=== PATIENT | female | born 1945 | race African-American/Black ===

== ENCOUNTER 2025-03-02 10:02 | Outpatient (AMB) | payer MEDICARE, MEDICAID, SELFPAY ==
--- NOTE | 2025-03-02 10:28 | A.PHYSOV_ITS ---
Vital Signs 03/02/25 10:28 Height 5 ft 4 in Weight 175 lb BMI 30.0 Intake Visit Reasons: 3M FUV Intake Note: Patient is a 79 year old female in office today for her 3 month medication management visit. 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 Allergies amlodipine Allergy (Unknown, Verified 03/02/25 10:29) Unknown amoxicillin Allergy (Unknown, Verified 03/02/25 10:29) Unknown atenolol Allergy (Unknown, Verified 03/02/25 10:) Unknown atorvastatin (From Lipitor) Allergy (Unknown, Verified 03/02/25 10:29) Unknown celecoxib (From Celebrex) Allergy (Unknown, Verified 03/02/25 10:) Unknown diltiazem Allergy (Unknown, Verified 03/02/25 10:) Unknown erythromycin base Allergy (Unknown, Verified 03/02/25 10:) Unknown ibuprofen Allergy (Unknown, Verified 03/02/25 10:) Unknown levofloxacin (From Levaquin) Allergy (Unknown, Verified 03/02/25 10:) Unknown nitrofurantoin (From Macrobid) Allergy (Unknown, Verified 03/02/25 10:) Unknown propoxyphene (From Darvon) Allergy (Unknown, Verified 03/02/25 10:) Unknown tetracycline Allergy (Unknown, Verified 03/02/25:) Unknown HPI Comments Details: History of Present Illness The patient is an 79-year-old female presenting for a follow-up visit for chronic neck and lower back pain. She has a lumbosacral spine MRI that was consistent with severe central spinal canal stenosis at the L2-L3 level, which is above a prior fusion. She was evaluated by Dr. Li on January 08, 2024, and surgery was not recommended. The patient is prescribed oxycodone/acetaminophen 5/325 mg for pain and takes up to six pills a day. She reports that her pain is worsening and the medication's effectiveness varies, acknowledging that her body is getting used to it. She has a history of C7-T1 epidural injections. She reports increasing right shoulder and arm pain, which is exacerbated by overhead activities and the use of her walker. She received a right subacromial injection on December 02, 2024, but she does not recall if it helped. Her back pain radiates to her hips, which hurt when she walks or turns over at night. She finds relief from leaning forward and using moist heat. In terms of recent health, she is recovering from influenza which she had in January 2025. Socially, the patient lives alone, feels unsupported by her family, and is responsible for her own housekeeping. Pain Description - Location: The patient reports chronic neck and lower back pain, increasing right shoulder and arm pain, and bilateral hip pain. - Quality: The shoulder pain is described as feeling like being stabbed with a hot knife. - Radiation: The back pain radiates to her hips. - Exacerbating Factors: Pain is worsened by walking, overhead activities, and pressure on her shoulders from using a walker. - Relieving Factors: Leaning forward helps open up her back and provides relief. - Current Management: The patient takes oxycodone/acetaminophen 5/325 mg, up to 6 pills per day, with variable effectiveness. - Non-pharmacologic Management: She uses moist heat on her hips for pain relief. Results - Imaging: A lumbosacral spine MRI showed severe central spinal canal stenosis at the L2-L3 level, above a previous fusion. [facility] Medical History (Updated 03/02/25 @ 12:38 by Bart Cowart DO) Post laminectomy syndrome Lumbar radiculitis Neck pain Spinal stenosis, lumbar region with neurogenic claudication Chronic pain syndrome Social History (Updated 03/02/25 @ 10:30 by Karla Irving MA) Household Members Other:: Alcohol intake: current Alcohol intake frequency: does not drink Patient Tobacco Use Status: Former Tobacco user Current occupational status: retired Review of Systems Narrative Review of Systems - Constitutional: Reports recovering from a recent case of influenza. - Musculoskeletal: Reports chronic neck and lower back pain, increasing right shoulder and arm pain, and bilateral hip pain that is worse with walking and turning over at night. - Neurological: Reports pain that radiates from her back down to her hips. - Psychiatric: Reports feeling alone. Physical Exam Exam Exam: Physical Exam - General: The patient is well-appearing and well-dressed. No antalgia negate, forward flexed posture. Appropriately conversant oriented. Restricted abduction in both shoulders. Tenderness with palpation over lumbar paraspinal muscles. No pain with internal hip rotation. Patient demonstrated no upper motor neuron signs. Neurological examination generally nonfocal. Vital Signs: BMI result Body Mass Index 30.0 Assessment & Plan Assessment & Plan (1) Spinal stenosis, lumbar region with neurogenic claudication: Code(s): M48.062 - Spinal stenosis, lumbar region with neurogenic claudication Category: Medical (2) Chronic pain syndrome: Code(s): G89.4 - Chronic pain syndrome Category: Medical (3) Neck pain: Code(s): M54.2 - Cervicalgia Category: Medical (4) Lumbar radiculitis: Code(s): M54.16 - Radiculopathy, lumbar region Category: Medical (5) Post laminectomy syndrome: Code(s): M96.1 - Postlaminectomy syndrome, not elsewhere classified Category: Medical Plan Pain Management - Analgesia: The patient is prescribed oxycodone/acetaminophen 5/325 mg as needed for pain, taking up to 6 pills a day. - She reports her pain is increasing, and the medication's effectiveness is variable. - Activities of Daily Living: Using a walker for mobility exacerbates her shoulder pain. - She finds it difficult to manage her apartment and do her own laundry. - Adverse Effects: She reports that her body is getting used to the medication, indicating tolerance. - Aberrant Drug Related Behaviors: She once stopped her medication for a few days but states she will not do so again. - Affect: The patient feels she is virtually alone and unsupported by family. Plan Patient was informed and verbally consented to the use of an ambient scribe for clinic note documentation during this visit. 1. Chronic Pain Syndrome The patient's multifactorial chronic pain is primarily managed with oxycodone/acetaminophen 5/325 mg, which she takes up to 6 times daily. She reports increasing pain and has noticed developing tolerance to the medication. We previously discussed development of tolerance, however I would be very hesitant on increasing her medication and she is already up to 6 tablets a day. She will continue her current regimen and is encouraged to continue using moist heat for symptomatic relief. Follow-up is scheduled in three months. 2. Lumbar Spinal Stenosis The patient has severe central spinal stenosis at L2-L3 above a prior fusion, which is the source of her lower back and radiating hip pain. A surgical evaluation on January 08, 2024, did not recommend surgery. Management remains conservative, focusing on symptomatic relief through pain medication and postural adjustments such as leaning forward. She will follow up in three months. 3. Right Shoulder Pain The patient reports increasing right shoulder pain, exacerbated by using her walker. She received a right subacromial injection three months prior but does not recall if it provided relief. 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 Discussion Notes I reviewed the patient's ongoing chronic neck and back pain, acknowledging that her MRI shows severe spinal stenosis above a prior fusion, which causes her back and radiating hip pain. I explained that leaning forward helps relieve the pressure and pain by opening the spinal canal. Pathophysiology of her condition was discussed again. We discussed her pain medication, oxycodone/acetaminophen, and I acknowledged her report that the pain is worsening and her body is becoming accustomed to the medication. We also discussed the right shoulder injection from three months ago; she did not recall it providing relief and noted her shoulder pain is now worse from using her walker. I commended her on how well she takes care of herself despite her significant pain and scheduled a follow-up appointment in about three months. Patient Instructions - Continue taking your pain medication, oxycodone/acetaminophen, as prescribed. - You can use moist heat packs on your hips when they hurt to help with the pain. - Remember that leaning your body forward when you walk may give you some temporary relief from your back pain. - Please schedule a follow-up visit to see me again in about three months. Medications: Refilled oxycodone-acetaminophen 5-325 mg 1 tab PO Q4H PRN 168 tabs 0RF pain 28 days G89.4 - Chronic pain syndrome, M48.062 - Spinal stenosis, lumbar region with neurogenic claudication, M54.2 - Cervicalgia Coding Level of Care Code Est Pt Level 4 (37765) Add On Problem Visit Only Diagnoses Spinal stenosis, lumbar region with neurogenic claudication M48.062 Chronic pain syndrome G89.4 Neck pain M54.2 Lumbar radiculitis M54.16 Post laminectomy syndrome M96.1
== END 2025-03-02 10:42 | disposition home or self-care (01) ==
LOC: HO.HPHYS 10:02
PROVIDERS: PCP Student in an Organized Health Care Education/Training Program; Visit Provider Physical Medicine & Rehabilitation
DX: M48.062 Spinal stenosis, lumbar region with neurogenic claudication (principal); G89.4 Chronic pain syndrome; M54.2 Cervicalgia; M54.16 Radiculopathy, lumbar region; M96.1 Postlaminectomy syndrome, not elsewhere classified
CPT/HCPCS: 99214; G2211

== ENCOUNTER → 2025-03-02 10:02 | Outpatient (BNVA) | payer MEDICARE, MEDICAID, SELFPAY | PROVIDERS: PCP Student in an Organized Health Care Education/Training Program; Visit Provider Physical Medicine & Rehabilitation | DX: G89.4 Chronic pain syndrome (principal); M48.062 Spinal stenosis, lumbar region with neurogenic claudication; M54.2 Cervicalgia; M54.16 Radiculopathy, lumbar region; M96.1 Postlaminectomy syndrome, not elsewhere classified | CPT/HCPCS: 99212 ==